=== PATIENT | male | born 1985 | race Caucasian/White ===

== ENCOUNTER 2019-06-15 06:01 | Day surgery (SDC) | payer MEDICARE, OTHER ==
[~2019-06-15] VITALS: Ht 180.3 cm; Wt 114.1 kg
--- NOTE | ~2019-06-15 | OP ---
PATIENT NAME: ARYAN COYLE MEDICAL RECORD: [id number] :83 [facility] DATE: SURGEON: MELISSA MCCOY MD DATE OF OPERATION: 06/15/2019 PREOPERATIVE DIAGNOSES: Tonsillar hypertrophy, chronic tonsillitis, nasal obstruction and turbinate hypertrophy. POSTOPERATIVE DIAGNOSES: Tonsillar hypertrophy, chronic tonsillitis, nasal obstruction and turbinate hypertrophy. PROCEDURE: Tonsillectomy and bilateral inferior turbinate reduction. SURGEON: Melissa Mccoy MD ANESTHESIA: General orotracheal. BLOOD LOSS: Less than 5 cc. SPECIMENS: Right and left tonsil. COMPLICATIONS: None. DISPOSITION: Recovery stable. PROCEDURE NOTE: He was brought to the operating room and placed in supine position, sedated and intubated by anesthesia. The table was turned 90 degrees. Head drapes applied and he was positioned for tonsillectomy. Using a headlight, a Gianfranco-Shayne mouth gag was carefully inserted and elevated on a towel on his chest. The palate was examined and palpated. It was normal. A red rubber catheter was placed. The right side the nose and pharynx was grasped with tonsil clamp to retract the soft palate. Using a mirror, the nasopharynx was examined. The choanae and eustachian orifices were normal bilaterally. The inferior turbinates were cauterized posteriorly with suction cautery and then a red rubber catheter was let down and removed. The right tonsil was grasped at superior pole with a straight Allis clamp. Spatula tip cautery on a setting of 10 was used to dissect out the tonsil along its capsule, preserving the anterior and posterior tonsillar pillars, it was really huge 4+ tonsil. The left tonsil was removed in the same fashion. Then, both sides of the nose were irrigated with saline. The pharynx was suctioned. Tonsillar fossae were agitated. Suction cautery on a setting of 18 was used to control minimal oozing. With the field completely clean and dry, the Gianfranco-Shayne mouth gag was let down and removed. Then, the nose were examined. The inferior turbinates injected with a total of less than 1 cc of 1% lidocaine with 1:100,000 epinephrine with a long 27-gauge needle. They are both infractured with a freer and then a Gruenwald was used to take down the inferior redundant portion of the turbinate. Suction cautery was used to stop any bleeding and they were outfractured with a Juab elevator. Had good nasal airway on both sides. He was then awakened, extubated, and transported to recovery in good condition. No complications. TRANSINT:[id number] Voice Confirmation ID: [id number] DOCUMENT ID: [id number] OPERATIVE REPORT [id number] ARYAN COYLE ERIC MD CC: [id number] DICTATION DATE: 06/15/19 1041 CLERK GUIDE: 06/15/19 1419 [facility] [place] 06/15/19 [id number] [place] [address]
--- NOTE | ~2019-06-15 | HP ---
PATIENT: ARYAN COYLE MEDICAL RECORD: [id number] ACCOUNT: [id number] LOCATION:[facility] : 83 ADMISSION DATE: 06/15/19 PCP: MELISSA MATTHEWS MD HISTORY AND PHYSICAL EXAMINATION PREOPERATIVE HISTORY AND PHYSICAL HISTORY: Aryan is 33. He is having problems with obstructive tonsillar hypertrophy, chronic tonsillitis as well as nasal obstruction and turbinate hypertrophy. He has been admitted for tonsillectomy and bilateral inferior turbinate reduction. PAST SURGICAL HISTORY: Includes diabetes, hypertension. PHYSICAL EXAMINATION: GENERAL: Healthy-appearing, developmentally normal. Obviously he has voice changes from massive tonsils. FACE: Normal, symmetric, no lesions. EYES: Sclerae and conjunctivae are normal. EARS: Canals and TMs normal. NOSE: Left septal deviation, but not much. Enlarged turbinates that do not decongest. ORAL CAVITY AND OROPHARYNX: Normal. Has 4+ kissing tonsils. Swelling of his pharynx and palate, it is not particularly low. NECK: No masses, adenopathy. CHEST: Clear. CARDIOVASCULAR: Regular rate and rhythm, no murmur. EXTREMITIES: Normal. IMPRESSION: Obstructive adenotonsillar hypertrophy, chronic tonsillitis, nasal obstruction and turbinate hypertrophy, refractory to medical management. PLAN: Tonsillectomy and bilateral inferior turbinate reduction. TRANSINT:[id number] Voice Confirmation ID: [id number] DOCUMENT ID: [id number] MELISSA MATTHEWS MD CC: [id number] DICTATION DATE: 06/10/19 1444 FIELD SERVICE REPRESENTATIVE: 06/10/19 [id number] [place] [address]
[~2019-06-15 06:01] MED LIST: ZYRTEC10 MG PO
[2019-06-15 07:02] VITALS: BP 133/89; Ht 180.3 cm; Wt 114.1 kg
--- NOTE | 2019-06-15 13:59 | NUR ---
1145 IV REMOVED AND PRESSURE HELD. INSTRUCTIONS GIVEN
== END 2019-06-15 11:55 | disposition home or self-care (01) ==
LOC: D.OPS 06:01 → D.PAN 07:30 → D.OPS 08:45
PROVIDERS: ATTEND Otolaryngology
DX: J35.01 Chronic tonsillitis (principal); J34.89 Other specified disorders of nose and nasal sinuses; J34.3 Hypertrophy of nasal turbinates; E11.9 Type 2 diabetes mellitus without complications; I10 Essential (primary) hypertension